=== PATIENT | male | born 1950 | race Caucasian/White ===

== ENCOUNTER 2017-01-16 08:20 | Emergency (ER) | payer OTHER ==
[~2017-01-16 08:20] MED LIST: COL100 PO; ECO81 PO; GLU5 PO; HUMULIN R100 U/1 M1 SC; LIPI10 PO; MAG PO; METFORMIN HCL1000 MG PO; METOPROLOL TART25 M1 PO; MOR2I IV; NIC14 TD; NIT0.4 SL; PRI20 PO; ZES10 PO; ZOFI IV
[2017-01-16 09:45] VITALS: BP 121/90
== END 2017-01-16 09:45 | disposition home or self-care (01) ==
LOC: ED 08:20
DX: S39.012A Strain of muscle, fascia and tendon of lower back, initial encounter (principal); E11.9 Type 2 diabetes mellitus without complications; I10 Essential (primary) hypertension; X50.1XXA Overexertion from prolonged static or awkward postures, initial encounter; Y93.89 Activity, other specified; Y92.89 Other specified places as the place of occurrence of the external cause; Y99.8 Other external cause status
CPT/HCPCS: J1885

== ENCOUNTER 2017-07-05 19:17 | Emergency (ER) | payer OTHER ==
[~2017-07-05] VITALS: Ht 170.2 cm; Wt 74.8 kg
[2017-07-05 19:25] VITALS: Ht 170.2 cm; Wt 74.8 kg
[2017-07-05 21:37] LABS: BASOPHIL % 0.2 % (0-2); PLATELET COUNT 173 x10^3mcL (130-400)
[2017-07-05 21:37] LABS: microscopic required? YES; urine erythrocyte NEGATIVE (NEGATIVE)
[2017-07-05 21:42] LABS: CALCIUM 9.1 mg/dL (8.5-10.1); CHLORIDE SERUM 104 mmol/L (98-107); GFR1 > 60 mL/min; GLUCOSE SERUM 146 mg/dL (74-106); POTASSIUM SERUM 3.8 mmol/L (3.5-5.1); SODIUM SERUM 140 mmol/L (136-145)
[2017-07-05 21:51] LABS: ALKALINE PHOSPHATASE 59 U/L (46-116); ALT/SGPT 35 U/L (16-63); BILIRUBIN TOTAL 0.48 mg/dL (0.20-1.00); LIPASE 227 IU/L (73-393); TOTAL PROTEIN, SERUM 7.2 g/dL (6.4-8.2)
[2017-07-05 22:14] LABS: AST/SGOT 24 U/L (15-37)
[2017-07-06 00:49] VITALS: BP 153/81
== END 2017-07-06 00:30 | disposition short-term general hospital (02) ==
LOC: ED 19:17
PROVIDERS: Emergency Medicine
DX: K56.699 Other intestinal obstruction unspecified as to partial versus complete obstruction (principal); F17.210 Nicotine dependence, cigarettes, uncomplicated; I10 Essential (primary) hypertension; E11.9 Type 2 diabetes mellitus without complications; E78.5 Hyperlipidemia, unspecified
CPT/HCPCS: 83880; J2270; J2405; J7030

== ENCOUNTER 2019-03-27 15:57 | Inpatient (IN) | payer OTHER ==
[~2019-03-27] VITALS: Ht 167.6 cm; Wt 72.3 kg
[2019-03-27 16:07] VITALS: Ht 167.6 cm; Wt 72.3 kg
[2019-03-27 16:52] LABS: BASOPHIL % 0 % (0-2); PLATELET COUNT 208 x10^3mcL (130-400); RED CELL DISTRIBUTION WIDTH 14.9 % (11.5-14.5)
[2019-03-27 17:04] LABS: CALCIUM 9.5 mg/dL (8.5-10.1); CARBON DIOXIDE 28.9 mmol/L (21-32); CHLORIDE SERUM 100 mmol/L (98-107); CREATININE SERUM 0.9 mg/dL (0.7-1.3); GFR1 > 60 mL/min; GLUCOSE SERUM 132 mg/dL (74-106); POTASSIUM SERUM 4.8 mmol/L (3.5-5.1); SODIUM SERUM 137 mmol/L (136-145)
[2019-03-27 17:19] LABS: ALBUMIN 4.2 g/dL (3.4-5.0); ALKALINE PHOSPHATASE 88 U/L (46-116); ALT/SGPT 38 U/L (16-63); AST/SGOT 29 U/L (15-37); BILIRUBIN TOTAL 0.57 mg/dL (0.20-1.00); LIPASE 121 IU/L (73-393); TOTAL PROTEIN, SERUM 8.1 g/dL (6.4-8.2)
[2019-03-27] MEDS ORDERED: ZESTRIL20 MG PO (19:54)
[2019-03-27] MEDS ORDERED: METOPROLOL SUCC50 M2 PO (19:54)
[2019-03-27] MEDS ORDERED: ROBAXIN500 MG PO (19:55)
[2019-03-27 20:09] LABS: microscopic required? NO
[2019-03-27 20:23] LABS: UA SPECIFIC GRAVITY 1.015 (1.005-1.035); urine erythrocyte NEGATIVE (NEGATIVE)
[2019-03-27 21:52] LABS: PHOSPHOROUS 3.4 mg/dL (2.5-4.9)
[2019-03-27 21:55] LABS: CHOLESTEROL/HDL RATIO 4.6
[2019-03-27 22:20] VITALS: BP 166/92
[2019-03-27 23:07] VITALS: BP 140/71
[2019-03-28 04:39] VITALS: BP 118/75
[2019-03-28 06:25] LABS: BASOPHIL % 0.3 % (0-2); PLATELET COUNT 197 x10^3mcL (130-400)
[2019-03-28 06:40] LABS: RED CELL DISTRIBUTION WIDTH 14.9 % (11.5-14.5)
[2019-03-28 06:51] LABS: CALCIUM 8.8 mg/dL (8.5-10.1); CARBON DIOXIDE 32.5 mmol/L (21-32); CHLORIDE SERUM 108 mmol/L (98-107); GFR1 > 60 mL/min; GLUCOSE SERUM 101 mg/dL (74-106); MAGNESIUM 1.9 mg/dL (1.8-2.4); PHOSPHOROUS 3.6 mg/dL (2.5-4.9); POTASSIUM SERUM 4.8 mmol/L (3.5-5.1); SODIUM SERUM 142 mmol/L (136-145)
[2019-03-28 09:06] VITALS: BP 114/69
[2019-03-28 12:24] VITALS: BP 113/64
[2019-03-28] MEDS ORDERED: MIRALAX17 GM/Dose PO (12:42)
[2019-03-28] MEDS ORDERED: COLACE100 MG PO (12:43)
[2019-03-28 13:01] VITALS: BP 113/64
== END 2019-03-28 13:38 | disposition home or self-care (01) | DRG 390 ==
LOC: ED 15:57 → DU 20:36 → MU 20:36 → DU 22:04 → MU 22:29
PROVIDERS: Emergency Medicine; ADMIT Internal Medicine
DX: K56.609 Unspecified intestinal obstruction, unspecified as to partial versus complete obstruction (principal); I10 Essential (primary) hypertension; E11.9 Type 2 diabetes mellitus without complications; E78.5 Hyperlipidemia, unspecified; F17.210 Nicotine dependence, cigarettes, uncomplicated; Z95.5 Presence of coronary angioplasty implant and graft; Z96.649 Presence of unspecified artificial hip joint; Z79.82 Long term (current) use of aspirin; Z79.84 Long term (current) use of oral hypoglycemic drugs; Z79.4 Long term (current) use of insulin; Z68.27 Body mass index [BMI] 27.0-27.9, adult
CPT/HCPCS: 82962; 99406; G0378; J2270; J2405; J7030; Q0092; Q9967